=== PATIENT | female | born 1940 | race Two or more races ===

== ENCOUNTER 2022-12-11 09:40 | Emergency (ER) | payer OTHER ==
[~2022-12-11] VITALS: Ht 160 cm; Wt 78.9 kg
[2022-12-11] MEDS ORDERED: ELIQUIS5 MG PO (09:52)
[2022-12-11] MEDS ORDERED: ZOCOR20 MG PO (09:53)
[2022-12-11] MEDS ORDERED: LORAZEPAM2 MG PO (09:53)
== END 2022-12-11 13:58 | disposition home or self-care (01) ==
LOC: EDBD 09:40 → ER 09:40
DX: J44.1 Chronic obstructive pulmonary disease with (acute) exacerbation (principal); Z20.822 Contact with and (suspected) exposure to COVID-19
CPT/HCPCS: 36415; 94640; 96365; 99283; J2930

== ENCOUNTER 2023-02-18 13:08 | Emergency (ER) | payer OTHER ==
[~2023-02-18] VITALS: Ht 152.4 cm; Wt 83.9 kg
[~2023-02-18 13:08] MED LIST: ELIQUIS5 MG PO; LORAZEPAM2 MG PO; ZOCOR20 MG PO
[2023-02-18 14:42] LABS: HEMATOCRIT 45.6 % (36.0-45.00); HEMOGLOBIN 14.6 g/dL (12.0-15.00); MEAN CELL VOLUME 95.3 fL (80.00-100.00); MEAN CORPUSCULAR HEMOGLOBIN 30.6 pg (27.00-32.0); MEAN CORPUSCULAR HGB CONC 32.1 g/dl (32.0-36.0); PLATELET COUNT 160 K/uL (150-450); RED BLOOD COUNT 4.78 M/uL (4.00-6.00); RED CELL DISTRIBUTION WIDTH 14.3 % (11.5-14.5)
[2023-02-18 15:01] LABS: CALCIUM 9.3 mg/dL (8.5-10.1); CREATININE SERUM 0.61 mg/dL (0.55-1.02); GFR 93.44; POTASSIUM 4.21 mEq/L (3.5-5.1)
== END 2023-02-18 16:07 | disposition home or self-care (01) ==
LOC: ER 13:08
PROVIDERS: General Practice
DX: M54.50 Low back pain, unspecified (principal); E78.00 Pure hypercholesterolemia, unspecified; I10 Essential (primary) hypertension; M19.90 Unspecified osteoarthritis, unspecified site; Z91.018 Allergy to other foods; I25.118 Atherosclerotic heart disease of native coronary artery with other forms of angina pectoris
CPT/HCPCS: 36415; 96372; 99284; J1885